=== PATIENT | male | born 1970 | race Caucasian/White ===

== ENCOUNTER 2024-11-12 09:06 | Outpatient (CLI) | payer OTHER, SELFPAY ==
[2024-11-12 09:30] LABS: Basophils Absolute Auto 0.1 K/mm3 (0.0-0.1); Basophils Percent Auto 0.7 % (0.2-1.2); Eosinophils Absolute Auto 0.1 K/mm3 (0-0.3); Eosinophils Percent Auto 1.8 % (0-4.4); Hematocrit 52.2 % (42.0-52.0); Hemoglobin 17.6 g/dL (14.0-18.0); Immature Granulocyte Absolute 0.05 K/mm3 (0.00-0.031); Immature Granulocyte Percent A 0.7 % (0-0.5); Lymphocytes Percent Auto 38.1 % (18.3-44.2); Mean Corpuscular HGB Conc 33.7 g/dl (32-36); Mean Corpuscular Hemoglobin 30.3 pg (26-34); Mean Platelet Volume 10.9 fl (7.4-10.4); Monocytes Absolute Auto 0.5 K/mm3 (0.1-0.6); Monocytes Percent Auto 6.9 % (2.6-8.5); Neutrophils Absolute Auto 3.8 K/mm3 (1.3-6.7); Neutrophils Percent Auto 51.8 % (45.5-73.1); Platelet Count Result 198 k/mm3 (150-375); Red Cell Distribution Width 12.6 % (11.5-14.5); White Blood Count 7.4 K/mm3 (4.5-10.0)
[2024-11-12 11:17] LABS: Creatinine Urine 74.2 mg/dL
[2024-11-12 11:34] LABS: MALB Creatinine Ratio < 8.1 mg/g (0-30); Microalbumin Urine Random < 6.0 mg/L (0-16.7)
[2024-11-12 13:26] LABS: Alanine Aminotransferase 116 U/L (6-50); Albumin Level 4.3 g/dL (3.5-5.1); Alkaline Phosphatase 56 U/L (38-126); Anion Gap 10 mmol/L (4-12); Aspartate Amino Transferase 66 U/L (17-59); Bilirubin,Total 0.9 mg/dL (0.2-1.3); Blood Urea Nitrogen 10 mg/dL (9-20); Calcium 9.1 mg/dL (8.4-10.2); Carbon Dioxide 26 mmol/L (22-30); Chloride 106 mmol/L (98-107); Cholesterol 151 mg/dL (0-200); Estimated Glomerular Filt Rate > 60; Glucose 164 mg/dL (65-110); HDL Direct 25 mg/dL; Sodium 142 mmol/L (137-145); Total Protein 7.5 g/dL (6.3-8.2); Triglycerides 371 mg/dL (<150)
[2024-11-12 13:38] LABS: LDL Cholesterol Direct 79 mg/dL
[2024-11-12 13:58] LABS: Thyroid Stimulating Hormone 0.367 uIU/mL (0.465-4.680)
[2024-11-12 19:28] LABS: Prostate Specific Antigen 0.6 ng/mL (< OR = 4.0)
== END 2024-11-12 09:07 | disposition home or self-care (01) ==
LOC: ANHLAB 09:13
PROVIDERS: PCP Nurse Practitioner; Visit Provider Nurse Practitioner
DX: Z00.00 Encounter for general adult medical examination without abnormal findings (principal); E11.9 Type 2 diabetes mellitus without complications; E78.5 Hyperlipidemia, unspecified; K21.9 Gastro-esophageal reflux disease without esophagitis; F41.9 Anxiety disorder, unspecified; Z12.5 Encounter for screening for malignant neoplasm of prostate
CPT/HCPCS: 36415; 80053; 80061; 82043; 84153; 84443; 85025

== ENCOUNTER 2025-04-11 12:00 | Emergency (ER) | payer OTHER, SELFPAY ==
--- OUTSIDE RECORDS SUMMARY | 2024-12-17 02:40 | XMS_ITS ---
Author Organization [employer] Address [address] [facility]. [address] [place] [address] Care Team Providers Care Quarter Supervisor Name Role Phone Yeimy Marrero Primary Care Provider Unavail Aviva Tucker Unavailable [phone] REASON FOR VISIT Screening 5ft 10in 255 Encounters Encounter Location Date Provider Diagnosis [address] [address] 12/17/2024 Aviva Smyth Plan Of Treatment No Information Progress Notes * Spike CHIRINOS ADOB:1970 (54 yo M)Acc No.[id number]:12/17/2024 Patient: Spike LAFLEUR Provider: Eleanor Smyth MD :1970 A ge:54 Y S ex:Male Date:12/17/2024 Address:[address] [place] [address] Pcp:Yeimy FLOOD Subjective: * Chief Complaints: * 1 . Screening 5ft 10in 255. * Medical History: Objective: * Vitals: Assessment: Plan: * Treatment: * * Electronic signature of Ronald Smyth MD on 04/11/2025 at 07:23 PM CONTROL ROOM OPERATOR Sign off status: Pending * Provider: Eleanor Smyth MD Date: 0 12/17/2024 Generated for Printi ng/Faxing/eTransmitting on: 1 06/11/2024 07:23 PM CONTROL ROOM OPERATOR
--- OUTSIDE RECORDS SUMMARY | 2025-01-21 04:40 | XMS_ITS ---
Author Organization [employer] Address 121 [facility]. [address] [place] [address] Care Team Providers Care Powerhouse Mechanic Name Role Phone Yeimy Marrero Primary Care Provider Vlad Holguin Unavailable [phone] REASON FOR VISIT Screening 5ft 10in 255 Encounters Encounter Location Date Provider Diagnosis [address] [address] 01/21/2025 Vlad Locke Plan Of Treatment No Information Progress Notes * Spike CHIRINOS ADOB:1970 (54 yo M)Acc No.[id number]:01/21/2025 Patient: Spike LAFLEUR Provider: Toma Locke D.O. :1970 A ge:54 Y S ex:Male Date:01/21/2025 Address:[address] [place] [address] Pcp:Yeimy FLOOD Subjective: * Chief Complaints: * 1 . Screening 5ft 10in 255. * Medical History: Objective: * Vitals: Assessment: Plan: * Treatment: * * Electronic signature of Fredy Locke DO on 04/11/2025 at 07:23 PM FLAMER AFTER LASTING Sign off status: Pending * Provider: Toma Locke D.O. Date: 0 01/21/2025 Generated for Printi ng/Faxing/eTransmitting on: 1 06/11/2024 07:23 PM FLAMER AFTER LASTING
[2025-04-11 12:27] VITALS: BP 146/83; PULSE 99; RESP 16; TEMP 36.4; O2SAT 97
--- NOTE | 2025-04-11 13:20 | ED.RECABL ---
HPI - Recheck/Abnormal Lab/Rx General Chief Complaint: Recheck/Abnormal Lab/Rx <Margi Lawson PA-C - Last Filed: 04/13/25 14:13> Stated Complaint: high blood glucose, dizzy <Margi Lawson PA-C - Last Filed: 04/13/25 14:13> Time Seen by Provider: 04/11/25 13:20 <Margi Lawson PA-C - Last Filed: 04/13/25 14:13> Focused HPI: This is a 54 year old male that presents to the ER for elevated blood sugar. Reports stomach cramps, dizziness, polyuria. Ongoing over the last couple of days. GENERAL: Well-appearing, well-nourished, and in no acute distress. HEAD: Normocephalic, atraumatic. CHEST: Clear to auscultation. ?No respiratory distress. HEART: Regular rate and rhythm.? NEURO: ?Alert and oriented x3. Patient screened in triage and initial orders placed.? ?Additional care and disposition to be based upon?diagnostic testing and treatment. <Margi Lawson PA-C - Last Filed: 04/13/25 14:13> History of Present Illness HPI narrative: Agree with the HPI. Patient recently switched from metformin to glipizide but has not started that yet today. He had been taking the metformin only intermittently and had restarted again a couple days ago prior to the nausea and vomiting. <Ruperto Oswald DO - Last Filed: 04/11/25 22:19> Related Data Allergies/Adverse Reactions: Allergies Allergy/AdvReac Type Severity Reaction Status Date / Time No Known Allergies Allergy Verified 04/11/25 12:29 <Margi Lawson PA-C - Last Filed: 04/13/25 14:13> Review of Systems Review of Systems: Gen.: Denies fevers or chills Eyes: Denies eye pain or visual change ENT: Denies congestion Respiratory: Denies shortness of breath or cough CV: Denies chest pain or palpitations GI: As per HPI denies burning, urgency, frequency or hematuria Musculoskeletal: Denies back pain or muscle pain Neuro: Denies numbness, tingling, weakness or focal weakness Skin: Denies rash Except as documented, all other systems reviewed and negative <Ruperto Oswald DO - Last Filed: 04/11/25 22:19> Exam Narrative: APPEARANCE: No acute distress, nontoxic, resting in bed EYES: EOMI HEENT: Normocephalic, atraumatic, OMM RESPIRATORY: No respiratory distress Clear to auscultation bilaterally with no rhonchi wheezing or rales. CARDIOVASCULAR: Regular rate and rhythm without murmurs rubs or gallops. ABDOMINAL: Obese. Soft, nontender, nondistended, no rebound or guarding MUSCULOSKELETAl: Moves all extremities. No clubbing, cyanosis or edema. NEURO: Awake and alert. Following commands, speech normal, no focal deficits SKIN:: Warm, dry. No rashes lesions or abrasions PSYCHIATRIC: Normal affect/mood, <Ruperto Oswald DO - Last Filed: 04/11/25 22:19> Course Vital Signs Vital signs: Vital Signs Temperature 97.6 F 04/11/25 12:27 Pulse Rate 99 04/11/25 12:27 Respiratory Rate 16 04/11/25 12:27 Blood Pressure 146/83 H 04/11/25 12:27 Pulse Oximetry 97 04/11/25 12:27 Oxygen Delivery Room Air 04/11/25 12:27 Temperature 97.6 F 04/11/25 12:27 Pulse Rate 92 04/11/25 15:35 Respiratory Rate 16 04/11/25 15:35 Blood Pressure 129/80 04/11/25 15:35 Pulse Oximetry 96 04/11/25 15:35 Oxygen Delivery Room Air 04/11/25 12:27 <Margi Lawson PA-C - Last Filed: 04/13/25 14:13> Vital Signs Temperature 97.6 F 04/11/25 12:27 Pulse Rate 99 04/11/25 12:27 Respiratory Rate 16 04/11/25 12:27 Blood Pressure 146/83 H 04/11/25 12:27 Pulse Oximetry 97 04/11/25 12:27 Oxygen Delivery Room Air 04/11/25 12:27 Temperature 97.6 F 04/11/25 12:27 Pulse Rate 92 04/11/25 15:35 Respiratory Rate 16 04/11/25 15:35 Blood Pressure 129/80 04/11/25 15:35 Pulse Oximetry 96 04/11/25 15:35 Oxygen Delivery Room Air 04/11/25 12:27 <Ruperto Oswald DO - Last Filed: 04/11/25 22:19> MDM - Recheck/Abnormal Lab/Rx MDM Narrative Medical decision making narrative: 54-year-old male Presenting for mild nausea. On initial evaluation patient was in no acute distress afebrile, hemodynamic stable. Differentials include but are not limited to: Gastroenteritis, enteritis, gastritis, medication side effect, hyperglycemia Notable exam findings: Abdomen soft and nontender. Heart and lungs clear. Notable lab findings: Mild leukocytosis at 11. He was hyperglycemic but remaining CMP without significant abnormalities. UA showed glycosuria Patient remained asymptomatic throughout his ED course. I suspect that the cause of his symptoms was a side effect of the metformin which she did not regularly take but had recently started taking again. He was just switched to glipizide which she has not started taking but he was concerned about potential side effects related to that. I did educate him on that and that his nausea and vomiting should improve over the next few days as he is off of the metformin. He was advised follow-up with his PCP in the next week for re-evaluation. Patient was agreeable to this plan. Given strict return precautions. <Ruperto Oswald DO - Last Filed: 04/11/25 22:19> Medical Records Attestation: I reviewed the patient's medical records. <Ruperto Oswald DO - Last Filed: 04/11/25 22:19> Lab Data Attestation: I reviewed the patient's lab results. <Ruperto Oswald DO - Last Filed: 04/11/25 22:19> Result diagrams: 04/11/25 13:57 04/11/25 13:57 <Margi Lawson PA-C - Last Filed: 04/13/25 14:13> Labs: Lab Results 04/11/25 04/11/25 Range/Units 13:54 13:57 WBC 11.0 H (4.5-10.0) K/mm3 RBC 5.60 (4.6-6.20) M/mm3 Hgb 17.3 (14.0-18.0) g/dL Hct 48.7 (42.0-52.0) % MCV 87.0 (80-100) fl MCH 30.9 (26-34) pg MCHC 35.5 (32-36) g/dl RDW 12.8 (11.5-14.5) % Plt Count 207 (150-375) k/mm3 MPV 11.3 H (7.4-10.4) fl Immature Gran % (Auto) 0.5 (0-0.5) % Neut % (Auto) 64.9 (45.5-73.1) % Lymph % (Auto) 27.1 (18.3-44.2) % Colbert % (Auto) 6.4 (2.6-8.5) % Eos % (Auto) 0.6 (0-4.4) % Baso % (Auto) 0.5 (0.2-1.2) % Lymph # (Auto) 2.97 (0.9-3.2) K/mm3 Colbert # (Auto) 0.7 H (0.1-0.6) K/mm3 Eos # (Auto) 0.1 (0-0.3) K/mm3 Baso # (Auto) 0.1 (0.0-0.1) K/mm3 Abs Immat Gran (auto) 0.05 H (0.00-0.031) K/mm3 Absolute Neuts (auto) 7.1 H (1.3-6.7) K/mm3 Absolute Nucleated RBC 0.000 (0.0-0.012) K/mm3 Nucleated RBC % 0.0 (0.0-0.2) % Sodium 134 L (137-145) mmol/L Potassium 3.9 (3.4-5.0) mmol/L Chloride 102 (98-107) mmol/L Carbon Dioxide 21 L (22-30) mmol/L Anion Gap 11 (4-12) mmol/L BUN 14 (9-20) mg/dL Creatinine 0.87 (0.7-1.3) mg/dL Estim Creat Clear Calc 105 ml/min Estimated GFR > 60 (59 - ) Glucose 238 H (65-110) mg/dL POC Capillary Glucose 249 H (65-105) mg/dl Calcium 8.9 (8.4-10.2) mg/dL Phosphorus 4.2 (2.5-4.5) mg/dL Magnesium 2.0 (1.6-2.3) mg/dL Total Bilirubin 1.5 H (0.2-1.3) mg/dL AST 44 (17-59) U/L ALT 70 H (6-50) U/L Alkaline Phosphatase 70 (38-126) U/L Total Protein 8.4 H (6.3-8.2) g/dL Albumin 4.7 (3.5-5.1) g/dL Urine Color Yellow (Yellow) Urine Appearance Clear (Clear) Urine pH 5.0 (5.0-9.0) Ur Specific Motley 1.043 H (1.001-1.035) Urine Protein Negative (Negative) mg/dL Urine Glucose (UA) 3+ H (Negative) mg/dL Urine Ketones Trace H (Negative) mg/dL Ur Blood (Man) Negative (Negative) Urine Nitrate Negative (Negative) Urine Bilirubin Negative (Negative) Urine Urobilinogen 0.2 (<2.0) mg/dL Leukocyte Esterase Rfl Negative (Negative) SILVIA/UL <Margi Lawson PA-C - Last Filed: 04/13/25 14:13> Lab Results 04/11/25 04/11/25 Range/Units 13:54 13:57 WBC 11.0 H (4.5-10.0) K/mm3 RBC 5.60 (4.6-6.20) M/mm3 Hgb 17.3 (14.0-18.0) g/dL Hct 48.7 (42.0-52.0) % MCV 87.0 (80-100) fl MCH 30.9 (26-34) pg MCHC 35.5 (32-36) g/dl RDW 12.8 (11.5-14.5) % Plt Count 207 (150-375) k/mm3 MPV 11.3 H (7.4-10.4) fl Immature Gran % (Auto) 0.5 (0-0.5) % Neut % (Auto) 64.9 (45.5-73.1) % Lymph % (Auto) 27.1 (18.3-44.2) % Colbert % (Auto) 6.4 (2.6-8.5) % Eos % (Auto) 0.6 (0-4.4) % Baso % (Auto) 0.5 (0.2-1.2) % Lymph # (Auto) 2.97 (0.9-3.2) K/mm3 Colbert # (Auto) 0.7 H (0.1-0.6) K/mm3 Eos # (Auto) 0.1 (0-0.3) K/mm3 Baso # (Auto) 0.1 (0.0-0.1) K/mm3 Abs Immat Gran (auto) 0.05 H (0.00-0.031) K/mm3 Absolute Neuts (auto) 7.1 H (1.3-6.7) K/mm3 Absolute Nucleated RBC 0.000 (0.0-0.012) K/mm3 Nucleated RBC % 0.0 (0.0-0.2) % Sodium 134 L (137-145) mmol/L Potassium 3.9 (3.4-5.0) mmol/L Chloride 102 (98-107) mmol/L Carbon Dioxide 21 L (22-30) mmol/L Anion Gap 11 (4-12) mmol/L BUN 14 (9-20) mg/dL Creatinine 0.87 (0.7-1.3) mg/dL Estim Creat Clear Calc 105 ml/min Estimated GFR > 60 (59 - ) Glucose 238 H (65-110) mg/dL POC Capillary Glucose 249 H (65-105) mg/dl Calcium 8.9 (8.4-10.2) mg/dL Phosphorus 4.2 (2.5-4.5) mg/dL Magnesium 2.0 (1.6-2.3) mg/dL Total Bilirubin 1.5 H (0.2-1.3) mg/dL AST 44 (17-59) U/L ALT 70 H (6-50) U/L Alkaline Phosphatase 70 (38-126) U/L Total Protein 8.4 H (6.3-8.2) g/dL Albumin 4.7 (3.5-5.1) g/dL Urine Color Yellow (Yellow) Urine Appearance Clear (Clear) Urine pH 5.0 (5.0-9.0) Ur Specific Motley 1.043 H (1.001-1.035) Urine Protein Negative (Negative) mg/dL Urine Glucose (UA) 3+ H (Negative) mg/dL Urine Ketones Trace H (Negative) mg/dL Ur Blood (Man) Negative (Negative) Urine Nitrate Negative (Negative) Urine Bilirubin Negative (Negative) Urine Urobilinogen 0.2 (<2.0) mg/dL Leukocyte Esterase Rfl Negative (Negative) SILVIA/UL <Ruperto Oswald DO - Last Filed: 04/11/25 22:19> Discharge Plan Discharge Clinical Impression: Acute hyperglycemia, Drug side effects <Margi Lawson PA-C - Last Filed: 04/13/25 14:13> Patient Disposition: Home <IMTIAZ Frost Last Filed: 04/13/25 14:13> Condition: Stable <IMTIAZ Frost Last Filed: 04/13/25 14:13> Instructions: Antibiotic Form, Diabetic Hyperglycemia (ED) <IMTIAZ Frost Last Filed: 04/13/25 14:13> Additional Instructions: Take the glipizide as prescribed. If you continue to have your nausea and abdominal pain despite stopping the metformin, call your PCP or return to the ED. <Margi Lawson PA-C - Last Filed: 04/13/25 14:13> Patient Language: Kiswahili <Margi Lawson PA-C - Last Filed: 04/13/25 14:13> Follow-up/Referrals: Tiffany,Yeimy Muñiz APRN [Primary Care Provider, Unknown] <Margi Lawson PA-C - Last Filed: 04/13/25 14:13> Stand Alone Forms: Work/School Release IP <IMTIAZ Frost Last Filed: 04/13/25 14:13>
[2025-04-11 14:10] LABS: Add Urine Microscopic? NO; Appearance Urine Clear (Clear); Glucose Urine UA 3+ mg/dL (Negative); Leukocyte Esterase Ur Negative LEU/UL (Negative); Nitrate Urine Negative (Negative); Specific Grav Ur 1.043 (1.001-1.035)
[2025-04-11 14:11] LABS: Hematocrit 48.7 % (42.0-52.0); Hemoglobin 17.3 g/dL (14.0-18.0); Immature Granulocyte Percent A 0.5 % (0-0.5); Lymphocytes Absolute Auto 2.97 K/mm3 (0.9-3.2); Mean Corpuscular HGB Conc 35.5 g/dl (32-36); Mean Corpuscular Hemoglobin 30.9 pg (26-34); Mean Corpuscular Volume 87.0 fl (80-100); Nucleated Red Blood Cells Absolute Auto 0.000 K/mm3 (0.0-0.012); Nucleated Red Blood Cells Perc 0.0 % (0.0-0.2); Platelet Count Result 207 k/mm3 (150-375); Red Blood Count 5.60 M/mm3 (4.6-6.20); White Blood Count 11.0 K/mm3 (4.5-10.0)
[2025-04-11 14:21] LABS: Alanine Aminotransferase 70 U/L (6-50); Albumin Level 4.7 g/dL (3.5-5.1); Alkaline Phosphatase 70 U/L (38-126); Anion Gap 11 mmol/L (4-12); Aspartate Amino Transferase 44 U/L (17-59); Bilirubin,Total 1.5 mg/dL (0.2-1.3); Blood Urea Nitrogen 14 mg/dL (9-20); Calcium 8.9 mg/dL (8.4-10.2); Carbon Dioxide 21 mmol/L (22-30); Chloride 102 mmol/L (98-107); Estimated CRCL calculation 105 ml/min; Estimated Glomerular Filt Rate > 60; Glucose 238 mg/dL (65-110); Magnesium 2.0 mg/dL (1.6-2.3); Potassium 3.9 mmol/L (3.4-5.0); Sodium 134 mmol/L (137-145); Total Protein 8.4 g/dL (6.3-8.2)
[2025-04-11 14:50] VITALS: BP 151/81; PULSE 98; RESP 17; O2SAT 97
[2025-04-11 15:35] VITALS: BP 129/80; PULSE 92; RESP 16; O2SAT 96
--- OUTSIDE RECORDS SUMMARY | 2025-04-11 19:23 | XMS_ITS | Data Portability ---
Author Organization [email or web address], Main Office Address [address] [place] [address] Assessment Encounter Date Assessment Date Assessment LastModified by Organization Details LastModified Time 12/05/2023 12/05/2023 This note is dictated and transcribed by [employer]. [employer] C[employer] Machine variances may occur. Despite proofreading, typographical errors may occur. Occasional wrong-word or '[id number]' substitutions may have occurred due to the inherent limitations of voice recording. Read the chart carefully and recognize, using context, where substitutions have occurred. ann Not available 12/05/2023 16:59:29 Plan of Treatment Reminders Order Date Submit Date Provider Last Modified By Organization Details Last Modified Time Details Appointments None record ed. Lab None record ed. Referral None record ed. Procedures None record ed. Surgeries None record ed. Imaging None record ed. Medication Orders None record ed. Patient TargetsNo targets recorded. Patient Instructions Encounter Date Encounter Id Patient Instructions Last Modified By Organization Details Last Modified Time 12/05/2023 [id number] paronychia: care instructions [email or web address] Not available 12/05/2023 17:01:44 Reason for Referral None Reported. Problems Name Problem SNOMED Code Status Onset Date Resolution Date Notes Provider Name and Address Organization Details Recorded Time Depressive disorder 72472342 Active 2023 Ariana pool [email or web address] 16:14:24 Anxiety 04423375 Active 2023 Ariana pool [email or web address] 16:14:29 Diabetes mellitus 88273300 Active 2023 Ariana pool [email or web address] 16:14:36 Heartburn 42394655 Active 2023 Ariana pool [facility] [employer] [facility] 4 16:14:43 Obesity 359262487 Active 2023 Ariana Katzd yrn [facility] [employer] [facility] 4 16:14:50 Sleep disorder 13269103 Active 2023 Ariana Dodd yrn [facility] [employer] [facility] 4 16:14:58 Ingrowing toenail 312016857 Active 2023 Yash Medina DPM [address], [place], [address] , [facility] [employer] [facility] 4 16:59:26 Pain of toe of right foot 5867334811797 01 Active 2023 Yash Medina DPM [address], [place], [address] , [facility] [employer] [facility] 4 17:05:05 Notes:BACK/NECK PROBLEM Problem Notes None recorded. Procedures Surgical History Date Name Laterality Status Provider Name and Address Organization Details Recorded Time 12/05/19 24 Toenail avulsion completed Yash Medina DPM [address], [place], [address], [facility] [employer] [facility] 12/05/2023 17:02:46 11/05/19 06 cholecystectomy completed Ariana Katzd [facility] [employer] [facility] 12/05/2023 16:17:13 Imaging Results None recorded. Procedure Notes None recorded. Medical Equipment None Reported. Allergies No known drug allergies Medications Name Sig Start Date Stop Date Status Note LastModified by Organization Details LastModified Time metformin 1,000 mg tablet Take 1 tablet twice a day by oral route. active Not Available Not Available No t Available fluoxetine 10 mg capsule Take 1 capsule every day by oral route. active Not Available Not Available No t Available atorvastatin active Not Available Not Available Not Available Januvia active Not Available Not Avail able Not Available Vitals Date Recorded Heart rate Respiratory rate Body temperature Oxygen saturation Oxygen saturation in Arterial blood by Pulse oximetry Systolic And Diastolic Provider Name and Address Organization Details Last Updated DateTime 4 92 /min 16 /min 98 [degF] 96 % 96 % 140/90 mm[Hg] Melanie Negron CT [employer] [facility] [employer] 16:13:54 Date Recorded Body height Body mass index (BMI) Body weight Provider Name and Address Organization Details Last Updated DateTime 12/05/2023 175.26 cm 41.3 kg/m2 490001.[address] [employer] [facility] [employer] 12/05/2023 16:07:33 Social History Question Answer Notes LastModified by Organizat ion Details LastModified Time Tobacco Smoking Status Former Smoker Ariana Macedo null, [facility] [employer] [facility] [employer] 12/05/2023 16:16:45 When Did You Quit Smoking? 6-10yearssin [employer]te Information not available 12/05/2023 How Many Years Have You Smoked Tobacco? 25 Information not available 12/05/2023 Sex: Unknown Functional Status Question Answer Note LastModified by Organization D etails LastModified Time What is your level of alcohol consumption? None Information not available 12/05/2023 Mental Status None recorded. Family History Relationship Description Onset Age of this Age Resolved Age Notes LastModified by Organization Details LastModified Time Maternal Grandfather Diabetes mellitus Heart diseas e [email or web address] Not available 12/05/2023 16:15:08 Unspecified Relation Diabetes mellitus PARENT Not available 2023 16:15:32 Unspecified Relation Family history of malignant neoplasm GRANDF ATHER Not available 12/05/2023 16:15:46 Medical History Condition Response DIABETES, TYPE Y ANXIETY DISORDER Y OBESITY Y DEPRESSION (INCLUDING POST ) Y BACK / NECK PROBLEMS Y HEARTBURN / REFLUX Y HIGH CHOLESTEROL / HYPERLIPIDEMIA Y Past Encounters Encounter ID Performer Location Encounter Start Date Encounter Closed Date Diagnosis/Indication Diagnosis SNOMED-CT Code Diagnosis ICD10 Code Diagnosis IMO Codes Diagnosis Note [id number] Yash Medina DPM [facility] Jermaine Ramos [address] [place] [address] 12/05/2023 15:48:41 12/06/2023 11:12:45 Ingrowing toenail 820666461 L60.0 right great toe lateral borderwoun d care reviewedDr essings reviewedSi gns of infection reviewedfo llow-up 1 week Pain of to e of right foot 3268620155 63328 M79.674 secondary to above Health Concerns Section Related Observation LastModified by Organization Detai ls LastModified Time None Recorded Concern Status LastModified by Organization Details LastModified Time None Recorded Advance Directives Directive None Recorded Payers Insurance Date Sequence Insurance Name Policy Number Policy Chiang Covered Member ID Chiang Member ID Guarantor Name 03/21/2024 1 *SELF PAY* Sc simone Chirinos 05/01/2024 1 () Spike Chirinos [id number] Spike Chirinos 10/05/2024 [facility] [facility] [place] [facility] Spike Chirinos [id number] Spike Chirinos Notes Date Note Type Note Provider Name and Address Organization Details Recorded Time 12/05/2023 text/html . Patient is a 53-year-old male who presents to office with complaints of an ingrown toenail to the right great toe. Patient states that on 11/19/2023 he developed this ingrown toenail. 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 Patient states can comfortably walk 0-2 blocks and has pain with walking. Patient rates the pain as 7/10 describes it as stabbing burning throbbing aching and intermittent in nature. Patient has been taking naproxen to help ease the pain. Patient denies any fever, chills, nausea or vomiting. Patient denies any other complaints. Yash Medina DPM [address] [facility] [address], [place], [address], [facility] 12/05/2023 17:06:04
--- OUTSIDE RECORDS SUMMARY | 2025-04-11 19:24 | XMS_ITS | Patient Health Record ---
Author Organization [employer] Address [address] [place] [place] [address] Care Team Providers Care Project Manager Entertainment And Media Name Role Phone Yeimy Marrero Primary Care Provider Unavail able Dariusz Rodriguez Unavailable [phone] Vlad Locke Unavailable [phone] Aviva Smyth Unavailable [phone] Reason For Referral No Information Medications Medication SIG (Take, Route, Frequency, Duration) Notes Start Date End Date Status Na Sulfate-K Sulfate-Mg Sulf 17.5-3.13-1.6 GM/177ML ML Orally Twice a day,Follow Physician Instructions.; Duration: 1 days 177mL orally twice a day, Follow physician instructions. 11/08/2024 Active Encounters Encounter Location Date Provider Diagnosis [facility], [address] [place] [address] 11/08/2024 Dariusz Rodriguez [facility] [address] [place] [address] [place] [address] 11/08/2024 Aviva Smyth [facility] [address] [place] [address] [place] [address] 11/08/2024 Aviva Smyth [facility] [address] [place] [address] [place] [address] 11/08/2024 Aviva Smyth [facility] [address] [place] [address] [place] [address] 12/11/2024 Aviva Smyth [facility], [address] [place] [address] 12/12/2024 Aviva Smyth [facility], [facility] [address] [facility] [place] [address] 12/31/2024 Vlad Locke [facility] [place], [facility] [address] [facility] [place] [address] 01/21/2025 Vlad Locke Plan Of Treatment No Information Insurance Providers Payer Name Payer Address Payer Phone Subscriber Number Group Number Insured Name Patient Relationship to Insured Coverage Start Date Coverage End Date [employer] E2 [address] [address] [place] [address] [id number] Spike Chirinos Self - patient is the insured [facility] [address] [address] [place] [address] [id number] Spike Chirinos Self - patient is the insured
--- OUTSIDE RECORDS SUMMARY | 2025-04-11 20:09 | XMS_ITS | Clinical Summary ---
Author Organization [facility] Address [address] [place] [address] Care Team Providers Care Retail Sales Associate Name Role Phone Unavailable Primary Care Provider Unavailabl e Social History Tobacco Use Types Packs/Day Years Used Date Smoking Tobacco: Never Assessed Sex and Gender Information Value Date Recorded Sex Assigned at Not on file Legal Sex Male 7:42 PM CDT Gender Identity Not on file Sexual Orientation Not on file Plan of Treatment Health Maintenance Due Date Last Done Comments Colorectal Cancer Screening Colonoscopy (10 Years) 1970 Annual Physical 1973 Hepatitis C 1988 DTaP, Tdap and Td Vaccines ( 1 - Tdap) 1989 Hepatitis B Vaccines (1 of 3 - 19+ 3-dose series) 1989 Pneumococcal Vaccine: 50+ Ye ars (1 of 1 - PCV) 2020 Zoster Vaccines (1 of 2) 2020 COVID-19 Vaccine ( - 2024-2 6 season) 2025 Influenza Adult (#1) 2025 Hepatitis A Vaccines Aged Out No long er eligible based on patient's age to complete this topic Meningococcal B Vaccine Aged Out No l onger eligible based on patient's age to complete this topic Meningococcal Vaccine Aged Out No melissa dereck eligible based on patient's age to complete this topic RSV Immunizations Under 20 Months Aged Out No longer eligible based on patient's age to complete this topic
== END 2025-04-11 15:35 | disposition home or self-care (01) ==
PROVIDERS: Physician Assistant; Emergency Provider Student in an Organized Health Care Education/Training Program; PCP Nurse Practitioner
DX: E11.65 Type 2 diabetes mellitus with hyperglycemia (principal); T38.3X5A Adverse effect of insulin and oral hypoglycemic [antidiabetic] drugs, initial encounter
CPT/HCPCS: 36415; 80053; 81003; 82948; 83735; 84100; 85025; 99283

== ENCOUNTER 2025-04-15 11:07 | Outpatient (CLI) | payer OTHER, SELFPAY ==
--- OUTSIDE RECORDS SUMMARY | 2025-04-15 12:04 | XMS_ITS | Clinical Summary ---
Author Organization [facility] Address [address] [place] [address] Care Team Providers Care Parts Remover Name Role Phone Unavailable Primary Care Provider [...]
[2025-04-15 12:15] LABS: Hemoglobin A1C 10.4 % (<5.7)
== END 2025-04-15 11:08 | disposition home or self-care (01) ==
LOC: ANHLAB 11:13
PROVIDERS: PCP Nurse Practitioner; Visit Provider Nurse Practitioner
DX: E78.5 Hyperlipidemia, unspecified (principal); E11.9 Type 2 diabetes mellitus without complications; I10 Essential (primary) hypertension; R79.89 Other specified abnormal findings of blood chemistry
CPT/HCPCS: 36415; 83036